=== PATIENT | female | born 1950 | race Caucasian/White ===

== ENCOUNTER → 2019-01-16 | Outpatient (CLI) | payer MEDICARE ==
--- NOTE | 2019-01-23 12:08 | MM ---
Reason for exam: screening (asymptomatic). Last mammogram was performed 2 years and 5 months ago. History: Patient is postmenopausal and had first child at age 34. Physical Findings: A clinical breast exam by your physician is recommended on an annual basis and results should be correlated with mammographic findings. MG 3D Screening Mammo W/Cad Bilateral CC and MLO view(s) were taken. Prior study comparison: August 25, 2016, mammogram, performed at [facility]. July 07, 2011, bilateral digital screening mammo w/CAD. October 20, 2009, bilateral digital screening mammogram. The breast tissue is heterogeneously dense. This may lower the sensitivity of mammography. There is no discrete abnormality. ASSESSMENT: Negative, BI-RAD 1 RECOMMENDATION: Routine screening mammogram of both breasts in 1 year.
== END | disposition home or self-care (01) ==
LOC: RADMAMWWP 10:27
PROVIDERS: ATTEND Internal Medicine
DX: Z12.31 Encounter for screening mammogram for malignant neoplasm of breast (principal)
CPT/HCPCS: 77063; 77067

== ENCOUNTER → 2020-06-10 | Outpatient (CLI) | payer MEDICARE ==
[2020-06-10 10:09] VITALS: BP 138/81; PULSE 56; RESP 18; TEMP 97.8
--- NOTE | 2020-06-10 11:16 | P.HPOB ---
History of Present Illness H&P Date: 06/10/20 Chief Complaint: The patient is here for her routine gynecologic exam. This is a 69-year-old with an LMP of 2002. The patient is here to establish with this office. It has been about 4 years since her last pelvic exam. She previously saw Dr. Vega for her gynecologic care. She states she has noticed an occasional left lower quadrant dull discomfort during the past 4 months. She thinks she may have noticed it after doing yoga. She would rated at a 1 out of 10 when she notices it and it is currently at 0 out of 10. The discomfort can last up to 3 days but is not there on many days. She has wondered if it is related to constipation since this is something she deals with. It seems to feel better after bowel movements. She is otherwise without complaints. She denies any postmenopausal bleeding. Review of Systems Weight has been stable. She denies respiratory or cardiac problems. GI: Occasional constipation. She denies maltreatment or problems with falling. : she denies any significant problems with urinary leakage. Past Medical History Additional Past Medical History / Comment(s): Osteopenia. PAST E[employer]MENT [employer] HISTORY: She has no history of STDs. History of Any Multi-Drug Resistant Organisms: None Reported Past Surgical History: Tonsillectomy Additional Past Surgical History / Comment(s): Colonoscopy 2016(next after 10yr). Past Psychological History: No Psychological Hx Reported Smoking Status: Never smoker Past Alcohol Use History: Occasional (2 per week) Past Drug Use History: None Reported Additional History: She has been since 1982. She is currently not working outside of the home. - Past Family History Father Additional Family Medical History / Comment(s): Heart disease and macular degeneration. Mother Family Medical History: Thyroid Disorder Additional Family Medical History / Comment(s): Hypothyroidism. Maternal aunt had colon cancer. Sister(s) Family Medical History: Thyroid Disorder Additional Family Medical History / Comment(s): Hypothyroidism Daughter(s) Additional Family Medical History / Comment(s): Developmental delay. Medications and Allergies Home Medications Medication Instructions Recorded Confirmed Type Ascorbic Acid [Vitamin C] 500 mg PO DAILY 06/10/20 06/10/20 History Biotin 5,000 mcg PO DAILY 06/10/20 06/10/20 History Cholecalciferol [Vitamin D3 (25 2,000 unit PO DAILY 06/10/20 06/10/20 History Mcg = 1000 Iu)] Allergies Allergy/AdvReac Type Severity Reaction Status Date / Time No Known Allergies Allergy Unverified 06/10/20 10:09 Exam Vital Signs Temp Pulse Resp BP Pulse Ox 06/10/20 10:04 97.8 F 56 L 18 138/81 100 Intake and Output 06/09/20 06/10/20 06/10/20 22:59 06:59 14:59 Other: Weight 55.792 kg Height 5 feet 3 inches, weight 123 pounds, BMI 21.8. This is a well-developed well-nourished white female who is alert and oriented times 3 in no acute distress. HEENT: Within normal limits. NECK: Supple without mass or thyromegaly. CHEST AND LUNGS: Clear to auscultation. HEART: Regular rate and rhythm. BREASTS: Are without mass or discharge. AXILLARY EXAM: Negative for adenopathy. BACK: Negative for CVA tenderness. ABDOMEN: Soft, nontender, without palpable masses. PELVIC EXAM: Normal external genitalia with mild to moderate atrophy. The vagina appears normal with mild to moderate atrophy. The cervix is slightly irregular in shape and is benign appearing. There are no cervical lesions. There is no unusual discharge. There is no evidence of prolapse. The uterus is midposition, nongravid size and nontender. There are no palpable adnexal masses or tenderness. RECTAL EXAM:Rectovaginal exam is negative for mass or tenderness and is negative for occult blood. EXTREMITIES: Nontender. IMPRESSION: 1. 69-year-old menopausal female with normal gynecologic exam. 2. Intermittent dull mild left lower quadrant abdominal discomfort during the past 4 months with no significant physical findings at this time. 3. History of osteopenia. PLAN: 1. Pap smear was performed. She will sign a records release to obtain records from Dr. Vega's office for her last 4 Pap smears. She has no history of abnormal Pap smears if today's Pap smear is negative and she has been adequately screened, we will consider discontinuing Pap smears. 2. Self breast awareness was discussed with the patient. 3. Screening mammogram is due. She has an appointment in August. The order slip was given to the patient for this. 4. Osteoporosis prevention was discussed. I have stressed the importance of adequate calcium, vitamin D and regular exercise. Recommended amounts of calcium and vitamin D were also discussed. She states it is been many years since her last bone density test. We will obtain the last bone density test done at Dr. Vega's office. I have also recommended repeating bone density test since she states it has been more than 3 years since her last one. The order slip was given to the patient for this. 5. Pelvic ultrasound was recommended and the order slip was given to the patient for this. 6. She did receive her flu shot this fall. 7. The patient was advised to return in 1-2 years for her well woman examination and as needed.
--- NOTE | 2020-06-23 09:30 | P.PN ---
Progress Note - Text Progress Note Date: 06/23/20 OUTPATIENT FOLLOW-UP NOTE TEST(S)/RESULTS: Pap smear done on 06/10/2020 was negative. METHOD OF NOTIFICATION: A message with this result was left on the patient's voicemail. PATIENT COMMENTS: DIAGNOSIS: negative Pap smear. DISCUSSION: Records from Dr. Vega's office were obtained and showed a Pap smear was done on 06/08/2011 and was negative. Bone density test done on 06/13/2011 showed osteopenia. This is what was obtained after requesting her last 4 Pap smears done there as well as her last bone density test. On the patient's voicemail I have notified her that these records were obtained. PLAN: I have recommended repeating the bone density test since it has been about 9 years since her last one. The order slip will be mailed to the patient for this. She will return in 1-2 years for her well woman examination. We will plan on continuing Pap smear testing until she has had 3 negative test results within 10 years.
== END | disposition home or self-care (01) ==
LOC: WWCWWP 09:40
PROVIDERS: ATTEND Obstetrics & Gynecology
DX: Z53.9 Procedure and treatment not carried out, unspecified reason (principal)

== ENCOUNTER → 2020-07-10 | Outpatient (CLI) | payer MEDICARE, OTHER ==
--- NOTE | 2020-07-10 12:14 | US ---
EXAMINATION TYPE: US pelvic complete DATE OF EXAM: 07/10/2020 COMPARISON: NONE CLINICAL HISTORY: Z78.0 post menopausal R10.321 LLQ Pain. Pain TECHNIQUE: Transabdominal (TA). EXAM MEASUREMENTS: Uterus: 4.8 x 2.1 x 3.5 cm Endometrial Stripe: .3 cm 1. Uterus: Anteverted wnl 2. Endometrium: wnl 3. Right Ovary: Obscured by overlying bowel gas 4. Left Ovary: Obscured by overlying bowel gas 5. Bilateral Adnexa: wnl 6. Posterior cul-de-sac: wnl IMPRESSION: 1. Limited pelvic ultrasound. 2. Visualized structures are unremarkable.
--- NOTE | 2020-07-10 16:11 | BD ---
EXAMINATION TYPE: Axial Bone Density DATE OF EXAM: 07/10/2020 COMPARISON: 10.12.2007 CLINICAL HISTORY: 69 YR OLD FEMALE.....ICD-10 CODE: Z78.0 POST MENOPAUSAL Height: 61.4 Weight: 118 FRAX RISK QUESTIONS: NOTHING TO NOTE HERE RISK FACTORS HISTORY OF: Active: YES Postmenopausal woman: YES ABOUT 53 YRS OLD Hyperparathyroidism: NO Adrenal Insufficiency: NO MEDICATIONS: Additional Medications: VIT D Additional History: NOTHING TO NOTE HERE EXAM MEASUREMENTS: Bone mineral densitometry was performed using the [employer] Match[employer] System. Bone mineral density as measured about the Lumbar spine is: ----- L1-L4(G/cm2): 0.910 T Score Values are as follows: ----- L1: -2.2 ----- L2: -2.2 ----- L3: -1.9 ----- L4: -2.7 ----- L1-L4: -2.3 Bone mineral density has: Decreased -5.1% since study of: 10.12.2007 Bone mineral density about the R hip (g/cm2): 0.893 Bone mineral density about the L hip (g/cm2): 0.860 T Score values are as follows: -----R Neck: -1.1 -----L Neck: -1.6 -----R Total: -0.9 -----L Total: -1.2 Bone mineral density has: Decreased -10.0% since study of: 10.12.2007 FRAX%s: THERE IS A 9.1% CHANCE FOR A MAJOR OSTEOPOROTIC FX AND A 1.3% FOR HIP......PROBABILITY FOR FX IN 10 YRS TIME IMPRESSION: Osteopenia (T Score between -2.5 and -1). There is slightly increased risk of fracture and the patient may be considered for treatment. Re-Screen 2-5 years. NOTE: T-SCORE=SD OF THE YOUNG ADULT MEAN.
--- NOTE | 2020-07-14 10:07 | P.PN ---
Progress Note - Text Progress Note Date: 07/14/20 OUTPATIENT FOLLOW-UP NOTE TEST(S)/RESULTS: Test results from 07/10/2020 include unremarkable pelvic ultrasound and bone density test showing osteopenia. METHOD OF NOTIFICATION: The patient was notified by phone. PATIENT COMMENTS: DIAGNOSIS: Negative pelvic ultrasound and osteopenia. I do not feel that her left lower quadrant abdominal pains are gynecologic in nature. DISCUSSION: Previous bone density tests were obtained from Dr. Vega's office. In comparing these bone density test with her current one, hips have remained fairly stable and the lumbar spine measurements have decreased. I have stressed the importance of getting adequate calcium, vitamin D and regular exercise. PLAN: Repeat bone density test in 2 years. If she has persistent left lower quadrant pain she will follow up with her PCP. She was advised to return in one year for her annual well woman exam.
== END | disposition home or self-care (01) ==
LOC: RADBDWWP 07:52
PROVIDERS: ATTEND Obstetrics & Gynecology
DX: M85.80 Other specified disorders of bone density and structure, unspecified site (principal); Z78.0 Asymptomatic menopausal state
CPT/HCPCS: 76856; 77080

== ENCOUNTER → 2020-08-31 | Outpatient (CLI) | payer MEDICARE ==
--- NOTE | 2020-09-01 10:15 | MM ---
Reason for exam: screening (asymptomatic). Last mammogram was performed 1 year and 7 months ago. History: Patient is postmenopausal and had first child at age 34. Physical Findings: A clinical breast exam by your physician is recommended on an annual basis and results should be correlated with mammographic findings. MG 3D Screening Mammo W/Cad Bilateral CC and MLO view(s) were taken. Prior study comparison: January 16, 2019, bilateral MG 3d screening mammo w/cad. August 25, 2016, mammogram, performed at [facility]. The breast tissue is heterogeneously dense. This may lower the sensitivity of mammography. No significant changes when compared with prior studies. ASSESSMENT: Benign, BI-RAD 2 RECOMMENDATION: Routine screening mammogram of both breasts in 1 year.
== END | disposition home or self-care (01) ==
LOC: RADMAMWWP 09:43
PROVIDERS: ATTEND Obstetrics & Gynecology
DX: Z12.31 Encounter for screening mammogram for malignant neoplasm of breast (principal)
CPT/HCPCS: 77063; 77067

== ENCOUNTER → 2020-10-02 | Outpatient (CLI) | payer MEDICARE ==
[2020-10-02 20:49] LABS: African American GFR (CKD) 88.4 (60.0-200.0); Anion Gap 6.1 mmol/L (4.00-12.00); BUN/Creat Ratio 28.75 Ratio (12.00-20.00); Calcium 9.6 mg/dL (8.7-10.3); Carbon Dioxide 27.9 mmol/L (21.6-31.8); Chol/HDL Ratio 2.16; Non-African American GFR(CKD) 76.3 (60.0-200.0); Potassium 4.4 mmol/L (3.5-5.5); Uric Acid 3.5 mg/dL (2.9-7.7)
[2020-10-02 20:57] LABS: T4, Free (Free Thyroxine) 0.9 ng/dL (0.80-1.80)
[2020-10-02 21:05] LABS: Basophils # (A) 0.03 X 10*3/uL (0.00-0.10); Basophils % (A) 0.6 %; Eosinophils # (A) 0.06 X 10*3/uL (0.04-0.35); Eosinophils % (A) 1.2 %; HCT 38.4 % (37.2-46.3); HGB 12.6 g/dL (12.0-15.0); Lymphocytes # (A) 1.25 X 10*3/uL (0.90-5.00); Lymphocytes % (A) 24.3 %; MCH 31.5 pg (27.0-32.0); MCHC 32.8 g/dL (32.0-37.0); Monocytes # (A) 0.63 X 10*3/uL (0.20-1.00); Monocytes % (A) 12.2 %; Neutrophils # (A) 3.17 X 10*3/uL (1.80-7.70); Neutrophils % (A) 61.5 %; Platelet Count 217 X 10*3/uL (140-440); RDW 12.8 % (11.5-14.5); WBC 5.15 X 10*3/uL (4.50-10.00)
== END | disposition home or self-care (01) ==
LOC: LABWHC1 11:52
PROVIDERS: ATTEND Internal Medicine
DX: I10 Essential (primary) hypertension (principal); E78.2 Mixed hyperlipidemia
CPT/HCPCS: 36415; 80048; 80061; 82239; 82306; 82550; 82607; 84439; 84443; 84450; 84480; 84550; 85025; 86769

== ENCOUNTER → 2022-04-15 | Outpatient (CLI) | payer MEDICARE, OTHER ==
[2022-04-15 11:32] LABS: HCT 39.8 % (37.2-46.3); HGB 13.2 g/dL (12.0-15.0); MCH 31.4 pg (27.0-32.0); MCHC 33.2 g/dL (32.0-37.0); MCV 94.8 fL (80.0-97.0); Mean Platelet Volume 9.6 fL (9.5-12.2); NRBC Per 100 WBC 0 /100 WBCS (0.0-0.0); Platelet Count 231 X 10*3/uL (140-440); RDW 13.3 % (11.5-14.5); WBC 3.44 X 10*3/uL (4.50-10.00)
[2022-04-15 11:43] LABS: ALT 24 U/L (8-44); AST 26 U/L (13-35); African American GFR (CKD) 75.6 (60.0-200.0); Albumin 4.7 g/dL (3.8-4.9); Albumin/Globulin Ratio 1.74 (1.60-3.17); Alkaline Phosphatase 75 U/L (41-126); BUN/Creat Ratio 25.44 Ratio (12.00-20.00); Blood Urea Nitrogen 22.9 mg/dL (9.0-27.0); Calcium 9.6 mg/dL (8.7-10.3); Chloride 105 mmol/L (96-109); Chol/HDL Ratio 2.54 Ratio; Globulin 2.7 g/dL (1.6-3.3); Glucose 92 mg/dL (70-110); LDL Cholesterol,Calculated 108.4 mg/dL (0.0-131.0); Non-African American GFR(CKD) 65.2 (60.0-200.0); Potassium 4.2 mmol/L (3.5-5.5); Sodium 142 mmol/L (135-145); Total Protein 7.4 g/dL (6.2-8.2); Uric Acid 3.4 mg/dL (2.9-7.7); VLDL Calculation 11.84 mg/dL (5.00-40.00)
--- NOTE | 2022-04-18 07:31 | MM ---
Reason for Exam: Screening (asymptomatic). Last mammogram was performed 1 year(s) and 7 month(s) ago. Patient History: Menarche at age 16. First Full-Term at age 34. Late child-bearing (after 30). Postmenopausal. Risk Values: Loida 5 year model risk: 2.2%. NCI Lifetime model risk: 6.6%. Prior Study Comparison: 08/25/2016 Screening Mammogram, [facility]. 01/16/2019 Bilateral Screening Mammogram, [facility]. 08/31/2020 Bilateral Screening Mammogram, [facility]. Tissue Density: The breast tissue is heterogeneously dense. This may lower the sensitivity of mammography. Findings: Analyzed By CAD. There is no suspicious group of microcalcifications or new suspicious mass in either breast. Overall Assessment: Negative, BI-RAD 1 Management: Screening Mammogram of both breasts in 1 year. A clinical breast exam by your physician is recommended on an annual basis and results should be correlated with mammographic findings. Electronically signed and approved by: German Nuñez DO
== END | disposition home or self-care (01) ==
LOC: RADMAMWWP 07:44
PROVIDERS: ATTEND Internal Medicine
DX: Z12.31 Encounter for screening mammogram for malignant neoplasm of breast (principal); E55.9 Vitamin D deficiency, unspecified
CPT/HCPCS: 77063; 77067; 80053; 80061; 82306; 82607; 84439; 84443; 84550; 85027

== ENCOUNTER → 2023-10-13 | Outpatient (CLI) | payer MEDICARE, OTHER ==
--- NOTE | 2023-10-16 14:13 | MM ---
Reason for Exam: Screening (asymptomatic). Last mammogram was performed 1 year(s) and 6 month(s) ago. Patient History: Menarche at age 16. First Full-Term at age 34. Late child-bearing (after 30). Postmenopausal. Risk Values: Loida 5 year model risk: 2.2%. NCI Lifetime model risk: 6.3%. Prior Study Comparison: 01/16/2019 Bilateral Screening Mammogram, [facility]. 08/31/2020 Bilateral Screening Mammogram, [facility]. 04/15/2022 Bilateral MG 3D screening mammo w/cad, [facility]. Tissue Density: The breast tissue is heterogeneously dense. This may lower the sensitivity of mammography. Findings: Analyzed By CAD. There is no suspicious group of microcalcifications or new suspicious mass. Overall Assessment: Negative, BI-RAD 1 Management: Screening Mammogram of both breasts in [address] [facility] will attempt to contact patient to return for supplemental views and ultrasound if indicated. Patient should continue monthly self-breast exams. A clinical breast exam by your physician is recommended on an annual basis. This exam should not preclude additional follow-up of suspicious palpable abnormalities. Note on Loida scores and lifetime risk: 1. A Loida score greater than 3% is considered moderate risk. If this is the case, consider specialist referral to assess eligibility for a risk reducing agent. 2. If overall lifetime risk for the development of breast cancer is 20% or higher, the patient may qualify for future screening with alternating mammogram and breast MRI. Electronically signed and approved by: German Nuñez DO
== END | disposition home or self-care (01) ==
LOC: RADMAMWWP 13:46
PROVIDERS: ATTEND Internal Medicine
DX: Z12.31 Encounter for screening mammogram for malignant neoplasm of breast (principal); Z78.0 Asymptomatic menopausal state
CPT/HCPCS: 77063; 77067

== ENCOUNTER → 2024-10-18 | Outpatient (CLI) | payer MEDICARE, OTHER ==
[2024-10-18 08:14] LABS: HCT 42.3 % (34.0-46.0); HGB 13.7 gm/dL (11.4-16.0); MCH 31.2 pg (25.0-35.0); MCHC 32.3 g/dL (31.0-37.0); MCV 96.6 fL (80.0-100.0); Platelet Count 245 k/uL (150-450); RBC 4.38 m/uL (3.80-5.40); RDW 13.2 % (11.5-15.5); WBC 3.6 k/uL (3.8-10.6)
[2024-10-18 08:44] LABS: ALT 26 U/L (4-34); AST 28 U/L (14-36); African American GFR (CKD) 81 (>60 ml/min/1.73 sqM); Albumin 4.5 g/dL (3.5-5.0); Alkaline Phosphatase 76 U/L (38-126); Anion Gap 10 mmol/L; Blood Urea Nitrogen 24 mg/dL (7-17); Calcium 9.7 mg/dL (8.4-10.2); Carbon Dioxide 25 mmol/L (22-30); Chloride 105 mmol/L (98-107); Glucose 90 mg/dL (74-99); Non-African American GFR(CKD) 70 (>60 ml/min/1.73 sqM); Potassium 4.2 mmol/L (3.5-5.1); Sodium 140 mmol/L (137-145); Total Bilirubin 0.6 mg/dL (0.2-1.3)
--- NOTE | 2024-10-18 09:52 | BD ---
EXAMINATION TYPE: Axial Bone Density DATE OF EXAM: 10/18/2024 CLINICAL HISTORY: 73 years old Female. ICD-10 CODE: M81.0 OSTEOPOROSIS , Additional History: Height: 61.5 in Weight: 125 lbs EXAM MEASUREMENTS: Bone mineral densitometry was performed using the [employer] System. Bone mineral density as measured about the Lumbar spine is: ----- L1-L4(G/cm2): 0.935 T Score Values are as follows: ----- L1: -2.4 ----- L2: -2.5 ----- L3: -1.4 ----- L4: -2.0 ----- L1-L4: -2.0 Z Score Values are as follows: ----- L1: -0.4 ----- L2: -0.5 ----- L3: 0.6 ----- L4: -0.1 ----- L1-L4: -0.1 Bone mineral density has: Increased 2.7% since study of: 07/10/2020 Bone mineral density about the R hip (g/cm2): 0.856 Bone mineral density about the L hip (g/cm2): 0.803 T Score values are as follows: -----R Neck: -1.4 -----L Neck: -2.0 -----R Total: -1.2 -----L Total: -1.6 Z Score values are as follows: -----R Neck: 0.6 -----L Neck: -0.1 -----R Total: 0.6 -----L Total: 0.1 Bone mineral density has: Decreased -5.4% since study of: 07/10/2020 FRAX%s: The graph provided illustrates a 12.1% chance for a major osteoporotic fx and a 2.7% chance f or the hips probability for fx in 10 years time. IMPRESSION: Osteoporosis (T Score less than -2.5). There is increased fracture risk and therapy is usually indicated based on age. Re-Screen 1-2 years. NOTE: T-SCORE=SD OF THE YOUNG ADULT MEAN. [facility], , 10/18/2024 9:50 AM
--- NOTE | 2024-10-18 10:20 | CT ---
EXAMINATION TYPE: CT heart w calcium score DATE OF EXAM: 10/18/2024 COMPARISON: None. CLINICAL INDICATION: Female, 73 years old with history of E78.2; PHH, mixed hyperlipidemia TECHNIQUE: Prospective Gating was used. Slice thickness: 3mm. Density threshold (HU): 130, Pixel threshold: 3, Algorithm: discrete. CT DLP: 67.2 mGycm Automated exposure control for dose reduction was used. FINDINGS: CT CALCIUM SCORING Coronary calcium is a marker for plaque (fatty deposits) in a blood vessel or atherosclerosis (harden ing of the arteries). The presence and amount of calcium detected in a coronary artery by the CT sca n, indicates the presence and amount of atherosclerotic plaque. These calcium deposits appear years before the development of heart disease symptoms such as chest pain and shortness of breath. A calcium score is computed for each of the coronary arteries based upon the volume and density of th e calcium deposits. This can be referred to as your calcified plaque burden. It does not correspond directly to the percentage of narrowing in the artery but does correlate with the severity of the un derlying coronary atherosclerosis. RESULTS Region: LM Calcium Score ([place]): 0 Volume (mm3): 0 Mass (g): 0 Region: RCA Calcium Score ([place]): 0 Volume (mm3): 0 Mass (g): 0 Region: LAD Calcium Score ([place]): 0 Volume (mm3): 0 Mass (g): 0 Region: CX Calcium Score ([place]): 0 Volume (mm3): 0 Mass (g): 0 Region: PDA Calcium Score ([place]): 0 Volume (mm3): 0 Mass (g): 0 Total: Calcium Score ([place]): 0 Volume (mm3): 0 Mass (g): 0 Incidental findings: Small to tiny pericardial effusion is seen. There is 5.6 cm thin-walled cyst in the left hepatic lobe incidentally noted. IMPRESSION: Calcium Score: 0 Implication: No calcified atherosclerotic plaque. Risk of Coronary Artery Disease: Very low, generally less than 5% CALCIUM SCORE IMPLICATION RISK OF C ORONARY ARTERY DISEASE 0 No identifiable plaque Very low, generally less than 5% 1-10 Minimal identifiable plaque Very unlikely, less than 10% 11-100 Definite, at least mild atherosclerotic plaque Mild or m inimal coronary narrowings likely 101-400 Definite, at least moderate atherosclerotic plaque Mild coronary ar roxana disease highly likely, significant narrowing possible 401 or Higher Extensive atherosclerotic plaque High lik elihood of at least one significant coronary narrowing [facility], , 10/18/2024 10:18 AM
[2024-10-18 10:22] LABS: T4, Free (Free Thyroxine) 0.84 ng/dL (0.78-2.19)
[2024-10-18 18:11] LABS: Chol/HDL Ratio 3.65 Ratio; LDL Cholesterol,Calculated 160.8 mg/dL (0.0-131.0); VLDL Calculation 13.54 mg/dL (5.00-40.00)
== END | disposition home or self-care (01) ==
LOC: RADBDWWP 07:19
PROVIDERS: ATTEND Internal Medicine
DX: M81.0 Age-related osteoporosis without current pathological fracture (principal); E78.2 Mixed hyperlipidemia; I25.10 Atherosclerotic heart disease of native coronary artery without angina pectoris; I31.39 Other pericardial effusion (noninflammatory)
CPT/HCPCS: 75571; 77080; 80053; 80061; 82306; 82607; 83036; 84439; 84443; 84550; 85027

== ENCOUNTER → 2024-11-15 | Outpatient (CLI) | payer MEDICARE, OTHER ==
--- NOTE | 2024-11-15 10:26 | MM ---
Reason for Exam: Screening (asymptomatic). Last mammogram was performed 1 year(s) and 1 month(s) ago. Patient History: Menarche at age 16. First Full-Term at age 34. Late child-bearing (after 30). Postmenopausal. Patient has history of breast feeding. Risk Values: Loida 5 year model risk: 2.2%. NCI Lifetime model risk: 5.7%. Prior Study Comparison: 01/16/2019 Bilateral Screening Mammogram, [facility]. 08/31/2020 Bilateral Screening Mammogram, [facility]. 04/15/2022 Bilateral MG 3D screening mammo w/cad, [facility]. 10/13/2023 Bilateral MG 3D screening mammo w/cad, [facility]. Tissue Density: The breasts are extremely dense, which lowers the sensitivity of mammography. Findings: Analyzed By CAD. There is no suspicious group of microcalcifications or new suspicious mass in either breast. Stable chronic nodularity left breast. Benign-appearing lymph nodes in the axilla. Overall Assessment: Benign, BI-RAD 2 Management: Screening Mammogram of both breasts in 1 year. . Patient should continue monthly self-breast exams. A clinical breast exam by your physician is recommended on an annual basis. This exam should not preclude additional follow-up of suspicious palpable abnormalities. Note on Loida scores and lifetime risk: 1. A Loida score greater than 3% is considered moderate risk. If this is the case, consider specialist referral to assess eligibility for a risk reducing agent. 2. If overall lifetime risk for the development of breast cancer is 20% or higher, the patient may qualify for future screening with alternating mammogram and breast MRI. [facility], , 11/15/2024 10:23 AM. Electronically signed and approved by: Mamadou Sidhu M.D. Radiologis
== END | disposition home or self-care (01) ==
LOC: RADMAMWWP 09:33
PROVIDERS: ATTEND Internal Medicine
DX: Z12.31 Encounter for screening mammogram for malignant neoplasm of breast (principal); R92.343 Mammographic extreme density, bilateral breasts; Z78.0 Asymptomatic menopausal state
CPT/HCPCS: 77063; 77067

== ENCOUNTER → 2025-03-07 | Day surgery (SDC) | payer MEDICARE, OTHER ==
[2025-03-06 08:57] VITALS: BMI 21.6
[~2025-03-07] MED LIST: LIDOCAINE 1% (10MG/ML) FOR IV START INTRADERMA PRN; PROPOFOL 10 MG/ML 20 ML VIAL IV ONE
[2025-03-07] MEDS: IV FLUID CONTINUATION 1,000 ML IV ONE ×2 (10:46→12:00)
[2025-03-07 10:57] VITALS: TEMP 98.1
[2025-03-07] MEDS: LACTATED RINGERS 1,000 ML IV SCH (10:57)
--- NOTE | 2025-03-07 12:19 | P.PCN ---
Date of Procedure: 03/07/25 Procedure(s) Performed: BRIEF HISTORY: Patient is a 74-year-old pleasant white female scheduled for an elective colonoscopy as a part of screening for colon cancer. PROCEDURE PERFORMED: Colonoscopy. PREOPERATIVE DIAGNOSIS: Screening for colon cancer. IV sedation per Anesthesia. PROCEDURE: After informed consent was obtained, the patient, was brought into the endoscopy unit. IV sedation was administered by Anesthesia under continuous monitoring. Digital rectal examination was normal. Initially the Olympus CF-160 flexible video colonoscope was then inserted in the rectum, gradually advanced into the cecum without any difficulty. Careful examination was performed as the scope was gradually being withdrawn. Ileocecal valve and the appendiceal orifice were visualized and appeared normal. Prep was excellent. Mucosa of the cecum, ascending colon, transverse colon, descending colon, sigmoid colon, and rectum appeared normal. Scattered sigmoid diverticulosis. Retroflexion was performed in the rectum and no lesions were seen. The patient tolerated the procedure well. IMPRESSION: Normal-appearing colon from rectum to cecum with no evidence of colorectal neoplasia Scattered sigmoid diverticulosis. RECOMMENDATIONS: Findings of this examination were discussed with the patient as well as her family. She was advised to have repeat screening colonoscopy in 10 years..
[2025-03-07 12:23] VITALS: RESP 16
[2025-03-07 12:36] VITALS: BP 141/81; PULSE 58
== END ==
LOC: ORWHC2ENDO 09:24
PROVIDERS: ATTEND Internal Medicine Gastroenterology
DX: Z12.11 Encounter for screening for malignant neoplasm of colon (principal); K57.30 Diverticulosis of large intestine without perforation or abscess without bleeding; F41.9 Anxiety disorder, unspecified; M85.80 Other specified disorders of bone density and structure, unspecified site; Z91.89 Other specified personal risk factors, not elsewhere classified; Z79.899 Other long term (current) drug therapy
CPT/HCPCS: J2704; G0121